=== PATIENT | female | born 1955 | race Two or more races ===

== ENCOUNTER 2017-10-31 08:16 | Emergency (ER) | payer MEDICAID ==
--- NOTE | 2017-10-31 09:16 | ER Document Report ---
ED Respiratory Problem <MELISSA RADER - Last Filed: 10/31/17 12:12> - General Mode of Arrival: Ambulatory Information source: Patient TRAVEL OUTSIDE OF THE [place] IN LAST 30 DAYS: No <INGRIS LLOYD - Last Filed: 10/31/17 14:04> - General Chief Complaint: Cough Stated Complaint: COUGH Time Seen by Provider: 10/31/17 08:36 Notes: This 62-year-old female patient Iggy Kilgore is here staying with her daughter. She has had a cough for the past 2 months, last few days it is turned yellow productive. She did notice that she had a decreased appetite, this happened previously when she had pneumonia. They decided last night to go to the hospital and went out to the [facility] where the daughter is eligible to be seen. She had a workup, which included blood work and a CTA of the chest. The CT scan showed possible inflammatory changes in the right upper lobe. The chemistries showed a slightly elevated BUN and creatinine. The CBC did not indicate what the WBCs were only what the differential was. He did have a blood sugar around 500, and admits that she has not had insulin for a few days although she has had her metformin. Based on the above, she was diagnosed with pneumonia and acute kidney injury and referred to this facility for admission. The patient reports that she did not have any fevers. She reports that she was wheezing last night. Her treatment at [facility] included a nebulizer treatment, prednisone 40 mg , moxifloxacin IV and a liter of normal saline IV. She also received regular insulin 10 units IV twice for a total of 20 units of insulin. (MELISSA RADER) - Related Data Allergies/Adverse Reactions: erythromycin base Allergy (Verified 10/31/17 11:07) fluoxetine [From Prozac] Allergy (Verified 10/31/17 08:36) influenza virus vaccine, specific Allergy (Verified 10/31/17 08:36) pneumococcal vaccine Allergy (Verified 10/31/17 08:36) sulfamethoxazole [From Bactrim] Allergy (Verified 10/31/17 11:07) trimethoprim [From Bactrim] Allergy (Verified 10/31/17 11:07) Past Medical History - General Information source: Patient - Social History Smoking Status: Never Smoker Cigarette use (# per day): No Frequency of alcohol use: None Drug Abuse: None Lives with: Family Family History: Reviewed & Not Pertinent - Medical History Medical History: Negative Past Surgical History: Reports: Hx Appendectomy, Hx Tubal Ligation, Other - Right shoulder surgery, left breast lumpectomy <INGRIS LLOYD - Last Filed: 10/31/17 14:04> Review of Systems - Review of Systems Constitutional: No symptoms reported EENT: No symptoms reported Cardiovascular: No symptoms reported Respiratory: Cough, Short of breath, Sputum, Wheezing Gastrointestinal: Poor appetite Genitourinary: No symptoms reported Female Genitourinary: Post menopausal Musculoskeletal: No symptoms reported Skin: No symptoms reported Hematologic/Lymphatic: No symptoms reported Neurological/Psychological: No symptoms reported <MELISSA RADER - Last Filed: 10/31/17 12:12> Physical Exam - Vital signs Interpretation: Hypertensive - General General appearance: Appears well, Alert In distress: None - HEENT Head: Normocephalic, Atraumatic Eyes: Normal Pupils: PERRL Neck: Normal - Respiratory Respiratory status: No respiratory distress Chest status: Nontender Breath sounds: Other - There are some coarse breath sounds most noticeable with forced cough. There is no wheezing heard at this time. - Cardiovascular Rhythm: Regular Heart sounds: Normal auscultation Murmur: No - Abdominal Inspection: Normal Distension: No distension Bowel sounds: Normal Tenderness: Nontender - Back Back: Normal - Extremities General upper extremity: Normal inspection General lower extremity: Normal inspection - Neurological Neuro grossly intact: Yes - Psychological Associated symptoms: Normal affect, Normal mood - Skin Skin Temperature: Warm Skin Moisture: Dry Skin Color: Normal <MELISSA RADER - Last Filed: 10/31/17 12:12> <INGRIS LLOYD - Last Filed: 10/31/17 14:04> - Vital signs Vitals: Resp BP Pulse Ox 17 165/103 H 97 10/31/17 08:30 10/31/17 08:30 10/31/17 08:30 - Notes Notes: Physical Exam: General: Alert, appears well. HEENT: Normocephalic. Atraumatic. PERRL. Extraocular movements intact. Oropharynx clear. Neck: Supple. Non-tender. Respiratory: No respiratory distress. Coarse breath sounds with forced cough. Saturating 98% on room air. Cardiovascular: Regular rate and rhythm. Abdominal: Normal Inspection. Non-tender. No distension. Normal Bowel Sounds. Back: Non-tender. No deformity or step off. Extremities: Moves all four extremities. Upper extremities: Normal inspection. Normal ROM. Lower extremities: Normal inspection. No edema. Normal ROM. Neurological: Normal cognition. AAOx4. Normal speech. Psychological: Normal affect. Normal Mood. Skin: Warm. Dry. Normal color. (INGRIS LLOYD) - General Notes: This time the patient has no wheezing, has a room air pulse ox of 97%. (MELISSA RADER) Course - Laboratory Result Diagrams: 10/31/17 09:32 10/31/17 09:32 - Diagnostic Test Radiology reviewed: Reports reviewed - Chest x-ray does not show any acute process. <MELISSA RADER - Last Filed: 10/31/17 12:12> - Laboratory Result Diagrams: 10/31/17 09:32 10/31/17 09:32 <INGRIS LLOYD - Last Filed: 10/31/17 14:04> - Re-evaluation Re-evalutation: 10/31/17 12:27 The patient's lungs continue to be clear to auscultate. On forced cough it is a very harsh bronchitic sound without wheezes. Chest x-ray does not show infiltrate, white blood cell count is quite low, the only real problems on finding is the patient has bronchitis with bronchospasm and blood sugars out of control due to running out of insulin. She states the refrigerator she has been using was broken and she lost her insulin. She did move here only 2 days ago from [place]. She does have all her other regular medications. She states that she takes Humalog 75/25 50 units every morning and 50 units every afternoon. She also states she takes Lantus 2 units nightly. I will prescribe the patient doxycycline for bronchitis, albuterol inhaler for wheezing. We will not use steroids due to the blood sugar problems. She will get a prescription for her Humalog 75/25 but will not write for Lantus symptoms that minuscule amount does not make sense and it would not really benefit her. She is encouraged to follow-up with a local medical doctor to manage her medical problems. (MELISSA RADER) - Vital Signs Vital signs: Temp Pulse Resp BP Pulse Ox 97.6 F 18 157/78 H 95 10/31/17 12:46 10/31/17 12:40 10/31/17 12:40 10/31/17 12:40 - Laboratory Laboratory results interpreted by me: 10/31/17 10/31/17 10/31/17 08:24 09:32 09:32 RDW 14.4 H Seg Neutrophils % 87.9 H Lymphocytes % 9.6 L Monocytes % 2.1 L Potassium 5.1 H BUN 21 H Glucose 526 H* POC Glucose 500 H* Urine Glucose (UA) Urine Ketones Urine Blood 10/31/17 10/31/17 09:32 12:06 RDW Seg Neutrophils % Lymphocytes % Monocytes % Potassium BUN Glucose POC Glucose 345 H Urine Glucose (UA) >=500 H Urine Ketones TRACE H Urine Blood MODERATE H Discharge <MELISSA RADER - Last Filed: 10/31/17 12:12> <INGRIS LLOYD - Last Filed: 10/31/17 14:04> - Discharge Clinical Impression: Acute bronchitis with bronchospasm, Has run out of medications Hyperglycemia due to type 2 diabetes mellitus Qualifiers: Diabetes mellitus chcf insulin use: with intermodal customer service use Qualified Code(s): E11.65 - Type 2 diabetes mellitus with hyperglycemia Condition: Stable Disposition: HOME, SELF-CARE Additional Instructions: Bronchitis with Bronchospasm (Wheezing) You have bronchitis with bronchospasm (wheezing). Sometimes people develop wheezing with a chest cold. This occurs either because of an underlying tendency toward asthma or because the virus itself irritates the bronchial tubes. This irritation causes cough, shortness of breath, and wheezing. Emergency treatment of bronchospasm may include adrenaline shots or bronchodilator aerosol. You may feel lightheaded and have a rapid pulse for an hour or two. Rest and get plenty of fluids. At home, we'll treat you with a bronchodilator inhaler. Corticosteroids may be required for some patients. Until you recover, avoid chemical fumes, dusts, pollens, and exercising in very cold or dry air. If you smoke, stop now! Most cases of bronchitis get better without antibiotics. We prescribe antibiotics when we believe bacteria are damaging your airways, or if there's high risk the bronchitis will worsen into pneumonia. Increase your fluid intake. A cool mist humidifier may make your lungs more comfortable. An expectorant (cough medicine that loosens phlegm) can help. Repeated episodes of bronchitis and bronchospasm may result in lung damage -- for example, chronic bronchitis, recurrent pneumonias, or emphysema. If you develop a fever, increased wheezing, chest pain, or severe shortness of breath, you should contact the doctor immediately. Take the medications as prescribed. Continue all your regular medications. Drink plenty of fluids today and tomorrow. Try Robitussin-DM to help control your cough. Follow-up with a local medical doctor to manage all of your medical problems while you are living here. RETURN TO THE EMERGENCY ROOM IF ANY NEW OR WORSENING SYMPTOMS. Prescriptions: Albuterol Sulfate [Proair HFA] 1 - 2 puff IH Q4 PRN #1 inhaler PRN Reason: Doxycycline Hyclate 100 mg PO BID #14 tablet Insulin Lispro Protamin/Lispro [Humalog Mix 75-25 Vial] 50 unit SQ BID #1 vial Scribe Attestation: 10/31/17 09:38 I personally performed the services described in the documentation, reviewed and edited the documentation which was dictated to the scribe in my presence, and it accurately records my words and actions. (MELISSA RADER) Scribe Documentation - Scribe Written by Yasmany:: Yasmany Pride, 10/31/2017 1404 acting as scribe for :: Angel <INGRIS LLOYD - Last Filed: 10/31/17 14:04>
[2017-10-31] MEDS ORDERED: NORMAL SALINE 1000 ML 1,000 ML IV ONE (09:24)
[2017-10-31 09:54] LABS: ABSOLUTE LYMPHOCYTES (AUTO) 0.5 10^3/uL (0.5-4.7); ABSOLUTE MONOCYTES (AUTO) 0.1 10^3/uL (0.1-1.4); BASOPHILS % (AUTO) 0.3 % (0-2); EOSINOPHILS % (AUTO) 0.1 % (0-6); HEMATOCRIT 38.8 % (36.0-47.0); HEMOGLOBIN 13.1 g/dL (12.0-15.5); LYMPHOCYTES % (AUTO) 9.6 % (13-45); MEAN CORPUSCULAR HEMOGLOBIN 27.5 pg (27.0-33.4); MEAN CORPUSCULAR HGB CONC 33.8 g/dL (32.0-36.0); MEAN CORPUSCULAR VOLUME 81 fl (80-97); MONOCYTES % (AUTO) 2.1 % (3-13); PLATELET COUNT 246 10^3/uL (150-450); RED BLOOD COUNT 4.77 10^6/uL (3.72-5.28); RED CELL DISTRIBUTION WIDTH 14.4 % (11.5-14.0); SEGMENTED NEUTROPHILS % (AUTO) 87.9 % (42-78); TOTAL CELLS COUNTED % (AUTO) 100 %; WHITE BLOOD COUNT 5.7 10^3/uL (4.0-10.5)
--- NOTE | 2017-10-31 09:56 | RADIOLOGY REPORT (SQ) ---
EXAM DESCRIPTION: CHEST 2 VIEWS COMPLETED DATE/TIME: 10/31/2017 9:49 am REASON FOR STUDY: Yellow productive cough COMPARISON: None. EXAM PARAMETERS: NUMBER OF VIEWS: two views TECHNIQUE: Digital Frontal and Lateral radiographic views of the chest acquired. RADIATION DOSE: NA LIMITATIONS: none FINDINGS: LUNGS AND PLEURA: No opacities, masses or pneumothorax. No pleural effusion. MEDIASTINUM AND HILAR STRUCTURES: No masses or contour abnormalities. HEART AND VASCULAR STRUCTURES: Heart normal size. No evidence for failure. BONES: No acute findings. HARDWARE: None in the chest. OTHER: No other significant finding. IMPRESSION: NO ACUTE RADIOGRAPHIC FINDING IN THE CHEST. TECHNICAL DOCUMENTATION: JOB ID: [id number] [employer]- All Rights Reserved Reading location - IP/workstation name: [email or web address]
[2017-10-31 10:08] LABS: APPEARANCE,URINE CLEAR; BILIRUBIN,URINE NEGATIVE (NEGATIVE); COLOR,URINE STRAW; GLUCOSE, URINE >=500 mg/dL (NEGATIVE); KETONES,URINE TRACE mg/dL (NEGATIVE); LEUKOCYTE ESTERASE,URINE NEGATIVE (NEGATIVE); NITRITE,URINE NEGATIVE (NEGATIVE); PROTEIN,URINE NEGATIVE (NEGATIVE); URINE SPECIFIC GRAVITY 1.024; UROBILINOGEN,URINE NEGATIVE mg/dL (<2.0)
[2017-10-31 10:16] LABS: ALANINE AMINOTRANSFERASE 35 U/L (9-52); ALBUMIN 4.1 g/dL (3.5-5.0); ALKALINE PHOSPHATASE 123 U/L (38-126); ANION GAP 13 (5-19); ASPARTATE AMINO TRANSFERASE 19 U/L (14-36); BILIRUBIN,DIRECT 0.3 mg/dL (0.0-0.4); BILIRUBIN,TOTAL 0.4 mg/dL (0.2-1.3); BLOOD UREA NITROGEN 21 mg/dL (7-20); CALCIUM 9.4 mg/dL (8.4-10.2); CARBON DIOXIDE 24 mmol/L (22-30); CHLORIDE 100 mmol/L (98-107); CREATINE KINASE 92 U/L (30-135); POTASSIUM 5.1 mmol/L (3.6-5.0); SODIUM 137.3 mmol/L (137-145); TOTAL PROTEIN 7.1 g/dL (6.3-8.2)
[2017-10-31 10:30] LABS: GLUCOSE 526 mg/dL (75-110)
[2017-10-31] MEDS ORDERED: INSULIN REG, HUMAN 100 UNIT/ML 3 ML VIAL (PYX) IV ONE (10:47)
[2017-10-31 12:46] VITALS: BP 157/78
== END 2017-10-31 12:50 | disposition home or self-care (01) ==
LOC: ER 08:16
DX: J20.9 Acute bronchitis, unspecified (principal); E11.65 Type 2 diabetes mellitus with hyperglycemia; T38.3X6A Underdosing of insulin and oral hypoglycemic [antidiabetic] drugs, initial encounter; Z91.128 Patient's intentional underdosing of medication regimen for other reason; Z91.14 Patient's other noncompliance with medication regimen; Z79.84 Long term (current) use of oral hypoglycemic drugs; R05 Cough; R63.0 Anorexia; R06.02 Shortness of breath; Z87.01 Personal history of pneumonia (recurrent); Z88.1 Allergy status to other antibiotic agents; Z88.8 Allergy status to other drugs, medicaments and biological substances; Z88.7 Allergy status to serum and vaccine
CPT/HCPCS: 99284; 96360; 36415; 87040; 82962; 82550; 83735; 85025; 80053; 81001; 84484; 83605; 71046; J1815; J7030

== ENCOUNTER → 2018-05-13 | Outpatient (CLI) | payer MEDICAID ==
--- NOTE | 2018-05-13 13:35 | RADIOLOGY REPORT (SQ) ---
EXAM DESCRIPTION: LUMBAR SPINE COMPLETE COMPLETED DATE/TIME: 05/13/2018 12:46 pm REASON FOR STUDY: LEFT HIP PAIN;LBP POTENTIALLY ASSOCIATED WITH RADICULOPATHY M25.552 PAIN IN LEFT HIP M54.5 LOW BACK PAIN COMPARISON: None. NUMBER OF VIEWS: Five views including obliques. TECHNIQUE: AP, lateral, oblique, and sacral radiographic images acquired of the lumbar spine. LIMITATIONS: None. FINDINGS: MINERALIZATION: Normal. SEGMENTATION: 5 thm-rbh-umlnbzy lumbar vertebral bodies. No transitional anatomy. ALIGNMENT: Normal. VERTEBRAE: Maintained height. No fracture or worrisome bone lesion. DISCS: Preserved height. No significant osteophytes or end plate irregularity. POSTERIOR ELEMENTS: Lower lumbar facet arthropathy. Facets are intact. No pars defect. Mild osseou s neural foraminal narrowing at L4-5 and L5-S1 bilaterally. HARDWARE: None in the spine. PARASPINAL SOFT TISSUES: Scattered aortic atherosclerosis. PELVIS: Intact as visualized. No fractures or worrisome bone lesions. SI joints intact. OTHER: No other significant finding. IMPRESSION: No evidence of acute bony abnormality. Lower lumbar facet arthropathy greatest on the left with mild osseous neural foraminal narrowing at L 4-5 and L5-S1. TECHNICAL DOCUMENTATION: JOB ID: [id number] [employer]- All Rights Reserved Reading location - IP/workstation name: [email or web address]
--- NOTE | 2018-05-13 13:40 | RADIOLOGY REPORT (SQ) ---
EXAM DESCRIPTION: HIP LEFT AP/LATERAL COMPLETED DATE/TIME: 05/13/2018 12:46 pm REASON FOR STUDY: LEFT HIP PAIN;LBP POTENTIALLY ASSOCIATED WITH RADICULOPATHY M25.552 PAIN IN LEFT HIP M54.5 LOW BACK PAIN COMPARISON: None. NUMBER OF VIEWS: Two views. TECHNIQUE: AP pelvis and additional frog-leg view of the left hip. LIMITATIONS: None. FINDINGS: MINERALIZATION: Normal. LEFT HIP: No fracture or dislocation. Spurring off the greater trochanter of hip. RIGHT HIP: Spurring off of the greater trochanter of the hip. No fracture or dislocation. PUBIS AND ISCHIUM: Degenerative changes at the symphysis pubis. No fracture. PELVIS: No fracture. Pelvic vascular calcifications and calcified phleboliths in the pelvis. SACRUM: No fracture or dislocation. Degenerative changes at the sacral iliac joints No worrisome bon e lesions. LOWER LUMBAR SPINE: Facet arthropathy lower lumbar spine, more so on the left. No fracture or dislo cation. SOFT TISSUES: No findings. OTHER: No other significant finding. IMPRESSION: 1. No acute osseous findings. 2. Degenerative changes at the sacro-iliac joints, symphysis pubis, and lower lumbar spine facet arth ropathy. 3. Mild spurring off of the greater trochanters of the hips. TECHNICAL DOCUMENTATION: JOB ID: [id number] [employer]- All Rights Reserved Reading location - IP/workstation name: [email or web address]
== END ==
LOC: OD 12:25
PROVIDERS: ATTEND Family Medicine
DX: M25.552 Pain in left hip (principal); M54.5 Low back pain; M16.12 Unilateral primary osteoarthritis, left hip; M48.07 Spinal stenosis, lumbosacral region
CPT/HCPCS: 72110